=== PATIENT | male | born 1965 | race Caucasian/White ===

== ENCOUNTER 2020-10-05 19:44 | Emergency (ER) | payer OTHER ==
[~2020-10-05] VITALS: Ht 175.3 cm; Wt 87.1 kg
--- NOTE | 2020-10-05 20:19 | NUR ---
ERP TO BEDSIDE
--- NOTE | 2020-10-05 20:23 | NUR ---
THIS IS A 54M THAT COMES IN FOR L SIDED CP X48HRS. STS IT RADIATES TO HIS BACK AND DESCRIBES SHARP STABBING PAIN. PIV STARTED PT PLACED ON ALL MONITORING. PER DR HANKS PT TO REMAIN IN RM 19 NO NEED TO TRANSFER TO T3. STS MONITOR MAY ONLY HAVE BEEN PICKING UP PVC RATHER THAN NORMAL BEATS.
[2020-10-05] MEDS ORDERED: ACETAMINOPHEN 500 MG TABLET ONE (20:27)
[2020-10-05] MEDS ORDERED: ACETAMINOPHEN 500 MG TABLET PO ONE (20:30)
[2020-10-05] MEDS ORDERED: SODIUM CHLORIDE 0.9% 1,000ML IVBOLUS ONE (20:30)
[2020-10-05] MEDS ORDERED: SODIUM CHLORIDE FLUSH 10ML SYR IVF ONE (20:30)
[2020-10-05 20:55] LABS: BASOPHILS % (AUTO) 0 % (0-1); EOSINOPHILS % (AUTO) 0 % (1-7); LYMPHOCYTES % (AUTO) 16 % (22-44); MD NO; MEAN CORPUSCULAR HEMOGLOBIN 30.8 pg (27.5-34.5); MEAN CORPUSCULAR HGB CONC 34.1 g/dL (33.2-36.2); MEAN PLATELET VOLUME 10.8 fL (7.4-10.4); MONOCYTES % (AUTO) 15 % (2-9); NEUTROPHILS % (AUTO) 68 % (42-75); PLATELET COUNT 164 x10^3/uL (130-400); RED BLOOD COUNT 4.51 x10^6/uL (4.38-5.82); RED CELL DISTRIBUTION WIDTH 12.9 % (9.4-14.8)
[2020-10-05 21:08] LABS: ALANINE AMINOTRANSFERASE 28 U/L (12-78); ALBUMIN 3.7 g/dL (3.4-5.0); ANION GAP 6 mmol/L (5-15); C-REACTIVE PROTEIN, QUANT 0.23 mg/dL (0.02-0.49); CALCIUM 8.3 mg/dL (8.5-10.1); CHLORIDE 107 mmol/L (98-107); CREATININE 1.29 mg/dL (0.7-1.3)
[2020-10-05 21:12] LABS: ALKALINE PHOSPHATASE 54 U/L (45-117); BILIRUBIN,TOTAL 0.4 mg/dL (0.2-1.0); TOTAL PROTEIN 6.7 g/dL (6.4-8.2); TROPONIN I 0.025 ng/mL (0.000-0.045)
--- NOTE | 2020-10-05 21:43 | NUR ---
COVID SWAB DONE AND WALKED TO LAB AT THIS TIME.
[2020-10-05 22:36] VITALS: BP 127/76
--- NOTE | 2020-10-05 22:37 | NUR ---
Patient/Caregiver given discharge instructions and they have confirmed that they understand the instructions. Patient ambulatory with steady gait.
== END 2020-10-05 22:39 | disposition home or self-care (01) ==
LOC: ED 21:44
DX: U07.1 COVID-19 (principal); R07.89 Other chest pain; R50.9 Fever, unspecified; R42 Dizziness and giddiness; I49.3 Ventricular premature depolarization; R94.31 Abnormal electrocardiogram [ECG] [EKG]
CPT/HCPCS: 36415; 71045; 80053; 83605; 84145; 84484; 85025; 86140; 87040; 93005; 96360; 99285; J7030; U0003